=== PATIENT | female | born 1985 | race Caucasian/White ===

== ENCOUNTER 2020-08-07 19:18 | Emergency (ER) | payer SELFPAY ==
--- NOTE | ~2020-08-07 | XR_ITS ---
XR knee RT 2V DATE: 08/07/2020 20:43 INDICATION: Knee buckled yesterday. Generalized right knee pain. TECHNIQUE: AP and crosstable lateral views COMPARISON: None FINDINGS: There is distention of the suprapatellar bursa consistent with knee joint effusion. No fat fluid level is evident to suggest fracture. No fracture or dislocation, periosteal reaction or bone destruction is evident. Knee joint spaces denisse ear well preserved. No chondrocalcinosis or radiopaque intra-articular loose body is evident. IMPRESSION: Knee joint effusion Reviewed, dictated and finalized at location A. ALS ANALYST IMPRESSION: Knee joint effusion
[2020-08-07 19:22] VITALS: BP 123/78; PULSE 76; RESP 18; TEMP 36.1; O2SAT 98
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
== END 2020-08-07 21:14 | disposition home or self-care (01) ==
PROVIDERS: Emergency Provider Emergency Medicine
DX: S83.91XA Sprain of unspecified site of right knee, initial encounter (principal); W51.XXXA Accidental striking against or bumped into by another person, initial encounter
CPT/HCPCS: 73560; 99283